=== PATIENT | female | born 1965 | race Caucasian/White ===

== ENCOUNTER → 2021-04-24 11:06 | Outpatient (CLI) | payer MEDICAID, SELFPAY ==
--- NOTE | 2021-04-24 | CA_ITS ---
APPROVED REPORT Exam: Pharmacologic Technologist: Meg Griggs, Ht: 6 ft 0 in Wt: 226 lbs BSA: 2.24 m2 HR: 98 bpm BP: 134/66 mmHg Rhythm: NSR Medical History Medical History: HTN, Hyperlipidemia, Diabetes, Smoking Medications: Omeprazole,,,,, Aspirin,,,,, Metoprolol,,,,, Metformin,,,,, Gabapentin,,,,, CHOLECALCIFEROL,,,,, Potassium,,,,, Sitagliptin,,,,, CetIRIizine,,,,, Lisinopri/HCTZ,,,,, RoSUVASatin,,,,, Furosemide,,,,, Allergies: CODEINE,LIDOCAINE,SULFA Cardiac Risk Factors: HTN, Hyperlipidemia, Diabetes (insulin), FHX of CAD, Smoking Stress Test Details Test: LEXISCAN HR Resting HR: 95 bpm Max Heart Rate (APMHR): 165.492437 bpm Max HR Achieved: 110 bpm Target HR (85% APMHR): 140.685219 bpm % of APMHR: 66.67 Recovery HR: 102 bpm BP Resting BP: 134/66 mmHg Max BP: 162/79 mmHg Recovery BP: 145.0/75.0 mmHg ECG Resting ECG: NSR Clinical Reason for Termination: Completed Protocol Exercise duration: 04:01 min Highest Stage Achieved: Exercise capacity: 1.0 METs Stress ECG Conclusion NO SYMPTOMS, NO ARRHYTHMIAS/ECTOPY, <1.[address] SEGMENT CHANGES, NON DIAGNOSTIC Test Summary REST 03:55 . . 95 . 134/ 66 . . Stage 1 01:00 . . 108 . . . . Stage 2 01:00 . . 105 . 162/ 79 . . Stage 3 01:00 . . 103 . 146/ 83 . . Stage 4 01:00 . . 103 . 138/ 77 . . Stage 4 01:01 . . 103 . 138/ 77 . Stop exercise at 04:01 RECOVERY 01:00 . . 102 . . . . RECOVERY 02:00 . . 103 . 145/ 75 . . RECOVERY 02:01 . . 103 . 145/ 75 . . Electronically signed by : Jeremiah Saldaña MD 04/26/2021 18:46:39
--- NOTE | 2021-04-24 11:06 | NM_ITS ---
APPROVED REPORT Exam: Nuclear Stress Test Indication: angina..short of breath..palpitations..syncope..fatigue Patient Location: Outpatient Stress Tech: Meg Griggs ID Tech:Rima FordeAZAM RT(R)(N) Ht: 6 ft 0 in Wt: 220 lbs Bra Size: c HR: 98 bpm BP: 134/66 mmHg BSA: 2.22 m2 History: angina..short of breath..palpitations..syncope..fatigue Procedure: Patient received a 0.4 mg of intravenous Lexiscan, resting heart rate 98 bpm, resting blood pressure 134/66 mmHg, with Lexiscan maximum heart rate achived was 106 bpm which is Less than 85 % of the maximum predicted heart rate and blood pressure was 162/79 mmHg. With Lexiscan, patient denied any complaint of chest pain. Electrocardiogram Resting electrocardiogram shows sinus rhythm, with Lexiscan there is less than 1.[address] segment depression noted from the baseline EKG. The EKG portion of the Lexiscan is nondiagnostic. Cardiac Stress and Resting SPECT Images: Cardiac Stress and Resting SPECT images were obtained using technetium 99m Myoview 32.8 mCi stress and 10.63 mCi at rest. Gated SPECT for analysis of segmental wall motion and calculation of the ejection fraction also done, prone images were also obtained. Cardiac stress and resting SPECT images show uniform myocardial activity without segmental perfusion abnormality, computer derived ejection fraction is 56% with no regional wall motion abnormality, right ventricle is normal size and contractility. Conclusion: 1. The EKG portion of the Lexiscan is nondiagnostic. 2. No scintigraphic evidence of reversible ischemia seen, computer derived ejection fraction 56% with no regional wall motion abnormality, right ventricle is normal size and contractility. 3. Normal Lexiscan Myoview study. Electronically signed by : Jeremiah Saldaña MD 04/26/2021 18:54:42
== END ==
PROVIDERS: PCP Nurse Practitioner Family; Visit Provider Urology
DX: I20.8 Other forms of angina pectoris (principal)
CPT/HCPCS: 78452; 93017; A9502; J2785

== ENCOUNTER → 2021-05-15 14:11 | Outpatient (CLI) | payer MEDICAID, SELFPAY ==
--- NOTE | 2021-05-15 14:11 | CT_ITS ---
PROCEDURE: CT CHEST WO CON CLINICAL INDICATION: dyspnea, tobacco use Chest pain left-sided, cough, smoker. COMPARISON: No exams were available for comparison TECHNIQUE: Axial images obtained with sagittal and coronal reformats. All CT scans at the facility use one or more dose reduction, viz: automated exposure control, ma/kV adjustment per patient size (including targeted exams where dose is matched to indication, i.e. head), or iterative reconstruction technique. FINDINGS: Airways are patent. There are no pulmonary nodules. No pleural fluid. There is no mediastinal lymphadenopathy. There is severe coronary calcific atherosclerosis. There is hypodensity along the ligamentum teres, likely representing fatty infiltration. There is severe calcific atherosclerosis of the splenic artery. Remainder of the visualized abdominal contents appear unremarkable. Degenerative changes bilateral sternoclavicular joints. IMPRESSION: 1. No pulmonary nodules. 2. Severe coronary atherosclerosis. Referral to cardiology is recommended. Dictated by: Shaista Stein MD 05/15/2021 14:41 Shaista Stein MD in [place] 05/15/2021 14:41
== END ==
PROVIDERS: PCP Nurse Practitioner Family; Visit Provider Physician Assistant
DX: R06.00 Dyspnea, unspecified (principal); I25.10 Atherosclerotic heart disease of native coronary artery without angina pectoris; E11.9 Type 2 diabetes mellitus without complications; F17.200 Nicotine dependence, unspecified, uncomplicated; Z79.4 Long term (current) use of insulin
CPT/HCPCS: 71250

== ENCOUNTER → 2022-03-29 09:06 | Outpatient (CLI) | payer MEDICAID, SELFPAY ==
--- NOTE | 2022-03-29 09:07 | CA_ITS ---
APPROVED REPORT EXAM: Comprehensive 2D, Doppler, and color-flow Echocardiogram Manager Test: Deborah Mario CRT Ht: 6 ft 0 in Wt: 236lbs BSA: 2.29 BP: 118/69 mmHg Indications: Shortness of Breath, Diabetes, CAD, Hypertension/HDD, stent, PHTN 2D Dimensions LA Volume 23.90 mL LA Volume Index 10.40 mL/m2 (M/F) 16-34 M-Mode Dimensions RVDd 2.81 cm (0.9-2.6) LA Diam 3.78 cm (1.9-4.0) LVDd 4.91 cm (3.5-5.7) Ao Diam 4.28 cm (2.0-3.7) LVDs 3.56 cm (3.5-5.7) IVSd 1.56 cm (0.6-1.1) PWd 0.60 cm (0.6-1.1) EF (Teich) 53.30% FS 27.50% EDV (Teich) 113.40 mL TAPSE 2.59 (<1.7) ESV (Teich) 53.00 mL LV Diastology E Decel Time 103.00 (160-240 msec) E/A Ratio 0.78 MED E' 9.60 (< 7 cm/sec) MED A' 11.80 cm/s E'/MED E' Ratio 6.83 (>14) LAT E' 8.00 (<10 cm/sec) LAT A' 10.70 cm/s E/LAT E' Ratio 8.20 (>14) Aortic Valve AO Peak GR. 6.40 mmHg Mitral Valve MV A Velocity 84.00 (40-130 cm/s) E/A Ratio 0.78 MV Decel. Time 103.00 (160-240 ms) Pulmonary Valve PV Peak Velocity 130.00 (50-150 cm/s) Tricuspid Valve TR P. Velocity 112.00 cm/s RAP Estimate 10.00 mmHg RVSP 15.10 mmHg Left Ventricle Left atrium is mildly enlarged, left ventricle is normal size, mild concentric left ventricular hypertrophy, estimated ejection fraction 55% with no regional wall motion abnormality, grade 1 diastolic dysfunction seen without tissue Doppler evidence of raise left atrial pressure. Right Ventricle Right atrium and right ventricle are mildly enlarged with normal contractility. Aortic Valve Aortic valve is minimally thickened and fibrosed there is no aortic stenosis or aortic insufficiency. Mitral Valve Mitral valve is grossly normal, there is trace mitral regurgitation. Tricuspid Valve Tricuspid valve grossly normal, there is trace tricuspid regurgitation, tricuspid regurgitation jet velocity is inadequate for calculation of the right ventricular systolic pressure. Pulmonic Valve Pulmonic valve is poorly visualized. Great Vessels Aortic root is normal size. Inferior vena cava is poorly visualized. Pericardium No significant pericardial effusion noted. Conclusion 1. Technically difficult study because of the patient factors and poor acoustic windows. Mild biatrial enlargement, normal left ventricular size, mild concentric left ventricular hypertrophy, estimated ejection fraction 55% with no regional wall motion abnormality, grade 1 diastolic dysfunction seen without tissue Doppler evidence of raise left atrial pressure. 2. Trace mitral and tricuspid regurgitation. 3. No significant pericardial effusion. 4. Inferior vena cava is poorly visualized. Electronically signed by : Jeremiah Saldaña MD 03/29/2022 20:49:03
== END ==
PROVIDERS: PCP Nurse Practitioner Family; Visit Provider Nurse Practitioner Family
DX: R06.00 Dyspnea, unspecified (principal); R06.02 Shortness of breath; R06.01 Orthopnea; I25.10 Atherosclerotic heart disease of native coronary artery without angina pectoris; I11.9 Hypertensive heart disease without heart failure; E11.9 Type 2 diabetes mellitus without complications; E78.49 Other hyperlipidemia; F17.200 Nicotine dependence, unspecified, uncomplicated; Z79.4 Long term (current) use of insulin
CPT/HCPCS: 93306

== ENCOUNTER → 2023-02-24 13:30 | Outpatient (CLI) | payer MEDICAID, SELFPAY ==
[2023-02-24 14:05] LABS: Basophils # 0.1 K/mm3 (0-0.2); Basophils % 0.8 % (0.1-2.0); Eosinophils # 0.2 K/mm3 (0.0-0.4); Hematocrit 41.3 % (37.0-47.0); Hemoglobin 13.8 g/dL (12.2-16.2); Mean Corpuscular HGB Conc 33.5 g/dL (31.8-35.4); Mean Corpuscular Hemoglobin 30.8 pg (27.0-31.2); Mean Platelet Volume 8.5 fl (7.4-10.4); Monocytes # 0.7 K/mm3 (0.1-1.0); Monocytes % 6.2 % (1.7-9.3); Neutrophils # 7.4 K/mm3 (1.8-7.8); Platelet Count 171 K/mm3 (142-424); Red Blood Count 4.49 M/mm3 (4.20-5.40); Red Cell Distribution Width 12.7 % (11.5-17.5); White Blood Count 11.4 K/mm3 (4.8-10.8)
[2023-02-24 14:16] LABS: Chloride 89 mmol/L (98-107)
[2023-02-24 14:17] LABS: Potassium 4.3 mmoL/L (3.5-5.1); Sodium 129 mmol/L (136-145)
[2023-02-24 14:19] LABS: Alanine Aminotransferase 27 U/L (12-78); Anion Gap 15.3 mEq/L (5-15); Aspartate Amino Transferase 40 U/L (14-36); Bilirubin,Unconjugated 0.5 mg/dL (0.0-1.1); Blood Urea Nitrogen 9 mg/dl (7-17); Carbon Dioxide 29 mmol/L (22.0-30.0); Cholesterol 143 mg/dl (140-200); Estimated Glomerular Filt Rate 103 ml/min (>60); GFR (African American) 125 ML/MIN (>60); Triglycerides 191 mg/dl (30-150); VLDL Cholesterol 38 mg/dL (0-40)
[2023-02-24 14:20] LABS: Albumin Level 4.1 g/dl (3.5-5.0); Alkaline Phosphatase 92 U/L (38-126); Bilirubin,Direct 0.3 mg/dl (0.0-0.4); Bilirubin,Indirect 0.5 mg/dL (0.0-0.9); Bilirubin,Total 0.8 mg/dl (0.2-1.3); Calcium 9.3 mg/dl (8.4-10.2); Chol/HDL Ratio 2.8 (1-3.5); Glucose 214 mg/dl (74-100); HDL Cholesterol 52 mg/dl (40-60); Magnesium 1.1 mg/dl (1.6-2.3); Total Protein,Serum 6.4 g/dl (6.3-8.2)
[2023-02-24 14:31] LABS: Direct LDL Cholesterol 68.62 mg/dL (100-129)
[2023-02-24 14:37] LABS: Free T4 (Free Thyroxine) 0.99 ng/dl (0.78-2.19)
[2023-02-24 14:53] LABS: Thyroid Stimulating Hormone 3.76 uIU/mL (0.465-4.68)
== END ==
PROVIDERS: PCP Nurse Practitioner Family; Visit Provider Internal Medicine
DX: R06.00 Dyspnea, unspecified (principal); R07.9 Chest pain, unspecified; I25.10 Atherosclerotic heart disease of native coronary artery without angina pectoris; I11.9 Hypertensive heart disease without heart failure; E78.5 Hyperlipidemia, unspecified; E11.9 Type 2 diabetes mellitus without complications; I63.9 Cerebral infarction, unspecified; F17.200 Nicotine dependence, unspecified, uncomplicated; Z79.4 Long term (current) use of insulin
CPT/HCPCS: 36415; 80048; 80061; 80076; 83735; 84439; 84443; 85025

== ENCOUNTER → 2023-03-03 12:09 | Outpatient (CLI) | payer MEDICAID, SELFPAY ==
--- NOTE | 2023-03-03 12:09 | NM_ITS ---
APPROVED REPORT Exam: Nuclear Stress Test Indication: chest pain..soa..palpitations..fatigue Patient Location: Outpatient Stress Tech: Mary Grier PA Tech:Rima FordeAZAM RT(R)(N) Ht: 6 ft 0 in Wt: 248 lbs Bra Size: 40c HR: 93 bpm BP: 138/72 mmHg BSA: 2.33 m2 Rhythm: NSR TID: 1.13 History: chest pain..soa..palpitations..fatigue Procedure: Patient received 0.4 mg of intravenous Lexiscan, resting heart rate 93 bpm, resting blood pressure 138/72 mmHg, with Lexiscan maximum heart rate achieved was 111 bpm which is 85 % of the maximum predicted heart rate and blood pressure was 188/79 mmHg. With Lexiscan, patient denied any complaint of chest pain. Cardiac Stress and Resting SPECT Images: Cardiac Stress and Resting SPECT images were obtained using technetium 99m Myoview 32.3 mCi stress and 10.53 mCi at rest. Resting and stress imaging in both supine and prone positions demonstrate no evidence of fixed or reversible perfusion defects. Gated imaging demonstrates normal global and regional LV systolic function. LVEF is calculated at 68%. Conclusion: No evidence of fixed or reversible perfusion defects. Gated imaging demonstrates normal global and regional LV systolic function. LVEF is calculated at 68%. Electronically signed by : Suzanna Camacho, 03/06/2023 19:25:28
--- NOTE | 2023-03-03 13:52 | CA_ITS ---
APPROVED REPORT Exam: Pharmacologic Technologist: Mary Santoro, Ht: 6 ft 0 in Wt: 252 lbs BSA: 2.35 m2 HR: 91 bpm BP: 138/72 mmHg Rhythm: NSR Medical History Medications: Lisinopril,,,,, Omeprazole,,,,, Potassium Chloride,,,,, Aspirin,,,,, Metformin,,,,, Gabapentin,,,,, Metoprolol Tartrate,,,,, Flonase,,,,, Albuterol,,,,, Vit D3,,,,, Januvia,,,,, Metolazone,,,,, Stress Test Details Test: LEXISCAN Reason for pharmacologic stress test: . HR Resting HR: 93 bpm Max Heart Rate (APMHR): 163 bpm Max HR Achieved: 111 bpm Target HR (85% APMHR): 139 bpm % of APMHR: 68 Recovery HR: 97 bpm BP Resting BP: 138/72 mmHg Max BP: 188/79 mmHg Recovery BP: 153.0/88.0 mmHg ECG Resting ECG: NSR, low voltage QRS Stress ECG: No significant ST change Arrhythmia: Occasional PVCs Clinical Exercise duration: 04:00 min Highest Stage Achieved: Stress ECG Conclusion Symptoms: Nausea, ad vomiting. No CP. Arrhythmias/Ectopy: Occasional PVCs. ST-T Changes: No significant ST changess. Conclusion: Unremarkable Lexiscan stress. Myoview images reported sepatately Test Summary REST . . . . . . . Resting REST 05:12 . . 93 . 138/ 72 . . Stage 1 01:00 . . 102 . . . . Stage 2 01:00 . . 108 . . . . Stage 3 01:00 . . 107 . . . . Stage 4 01:00 . . 109 . 188/ 79 . Stop exercise at 04:00 RECOVERY 01:00 . . 107 . . . . RECOVERY 02:00 . . 103 . 171/ 93 . . RECOVERY 03:00 . . 98 . 167/ 80 . . RECOVERY 04:00 . . 100 . 167/ 80 . . RECOVERY 04:41 . . 100 . 163/ 88 . . Electronically signed by : Suzanna Camacho, 03/06/2023 19:23:38
== END ==
PROVIDERS: PCP Nurse Practitioner Family; Visit Provider Internal Medicine
DX: R06.00 Dyspnea, unspecified (principal); R07.9 Chest pain, unspecified; I25.10 Atherosclerotic heart disease of native coronary artery without angina pectoris; I11.9 Hypertensive heart disease without heart failure; E78.5 Hyperlipidemia, unspecified; E11.9 Type 2 diabetes mellitus without complications; F17.200 Nicotine dependence, unspecified, uncomplicated; Z79.4 Long term (current) use of insulin
CPT/HCPCS: 78452; 93017; A9502; J0280; J2785

== ENCOUNTER → 2023-03-23 13:24 | Outpatient (CLI) | payer MEDICAID, SELFPAY ==
--- NOTE | 2023-03-23 13:26 | CA_ITS ---
APPROVED REPORT EXAM: Comprehensive 2D, Doppler, and color-flow Echocardiogram Piece Dye Worker: Queenie Kan RVT Ht: 6 ft 0 in Wt: 252lbs BSA: 2.35 BP: 172/87 mmHg Indications: DONALDSON,EDEMA,CP TDS-LIMITED WINDOWS R/T BODY HABITUS 2D Dimensions LVOT 2.04 cm (M/F) 1.5-2.5 LA Volume 30.40 mL LA Volume Index 12.94 mL/m2 (M/F) 16-34 M-Mode Dimensions RVDd 2.38 cm (0.9-2.6) LA Diam 4.27 cm (1.9-4.0) LVDd 4.16 cm (3.5-5.7) Ao Diam 3.65 cm (2.0-3.7) LVDs 3.06 cm (3.5-5.7) IVSd 1.02 cm (0.6-1.1) PWd 0.51 cm (0.6-1.1) EF (Teich) 52.20% FS 26.40% EDV (Teich) 76.80 mL TAPSE 1.92 (<1.7) ESV (Teich) 36.70 mL LV Diastology E Decel Time 257.00 (160-240 msec) E/A Ratio 0.8 MED E' 9.00 (< 7 cm/sec) E'/MED E' Ratio 7.14 (>14) LAT E' 10.00 (<10 cm/sec) E/LAT E' Ratio 6.43 (>14) Aortic Valve AO Peak GR. 7.00 mmHg Mitral Valve MV E Max Kristian. 64.00 (40-130 cm/s) MV A Velocity 77.00 (40-130 cm/s) E/A Ratio 0.83 MV Decel. Time 257.00 (160-240 ms) MV PHT 75.00 ms Pulmonary Valve PV Peak Velocity 91.00 (50-150 cm/s) Left Ventricle The left ventricle is normal size. The left ventricular systolic function is normal. The left ventricular ejection fraction is within the normal range. There is increased LV wall thickness. There is normal LV segmental wall motion. The left ventricular diastolic function is normal. LVEF is 55%. Right Ventricle The right ventricle is normal size. The right ventricular systolic function is normal. There is increased RV wall thickness. Atria The left atrium size is normal. The right atrium size is normal. There is no Doppler evidence of interatrial shunt. Aortic Valve The aortic valve opens well. There is no aortic valvular stenosis. No aortic regurgitation is present. Mitral Valve The mitral valve is normal in structure. No evidence of mitral valve stenosis. Trace mitral regurgitation. Tricuspid Valve The tricuspid valve leaflets are thin and pliable. Trace tricuspid regurgitation. RVSP is normal. Pulmonic Valve The pulmonary valve is grossly normal in structure. Trace pulmonic regurgitation. Great Vessels The aortic root is normal in size. The ascending aorta is normal in size. IVC is normal in size and collapses >50% with inspiration. Pericardium Trivial pericardial effusion is noted anteriorly towards the distal RV free wall. Other Information Study Quality: Technically Difficult Conclusion This was a technically difficult study due to poor accoustic windows. Normal biventricular systolic function. No significant valvular disease. Trivial anterior pericardial effusion. Electronically signed by : Suzanna Camacho, 03/29/2023 00:00:33
== END ==
PROVIDERS: PCP Nurse Practitioner Family; Visit Provider Internal Medicine
DX: R06.00 Dyspnea, unspecified (principal); R07.9 Chest pain, unspecified; I25.10 Atherosclerotic heart disease of native coronary artery without angina pectoris; I11.9 Hypertensive heart disease without heart failure; E11.9 Type 2 diabetes mellitus without complications; E78.5 Hyperlipidemia, unspecified; F17.200 Nicotine dependence, unspecified, uncomplicated; Z79.4 Long term (current) use of insulin
CPT/HCPCS: 93306

== ENCOUNTER → 2023-03-31 14:28 | Outpatient (CLI) | payer MEDICAID, SELFPAY ==
[2023-03-31 16:10] LABS: Anion Gap 16.4 mEq/L (5-15); Blood Urea Nitrogen 13 mg/dl (7-17); Calcium 8.7 mg/dl (8.4-10.2); Carbon Dioxide 32 mmol/L (22.0-30.0); Chloride 79 mmol/L (98-107); Estimated Glomerular Filt Rate 86 ml/min (>60); GFR (African American) 104 ML/MIN (>60); Glucose 219 mg/dl (74-100); Potassium 4.4 mmoL/L (3.5-5.1); Sodium 123 mmol/L (136-145)
[2023-03-31 16:19] LABS: NT Pro Brain Natriuretic Pep. 461 pg/mL (0-125)
== END ==
PROVIDERS: PCP Nurse Practitioner Family; Visit Provider Internal Medicine
DX: E11.9 Type 2 diabetes mellitus without complications (principal); E78.5 Hyperlipidemia, unspecified; I11.9 Hypertensive heart disease without heart failure; I25.10 Atherosclerotic heart disease of native coronary artery without angina pectoris; R06.00 Dyspnea, unspecified; R60.9 Edema, unspecified; F17.200 Nicotine dependence, unspecified, uncomplicated
CPT/HCPCS: 36415; 80048; 83735; 83880

== ENCOUNTER 2024-07-19 10:16 | Outpatient (CLI) | payer MEDICAID, SELFPAY ==
[2024-07-19 10:45] LABS: Basophils # 0.1 K/mm3 (0-0.2); Basophils % 0.6 % (0.1-2.0); Eosinophils # 0.3 K/mm3 (0.0-0.4); Eosinophils % 2.3 % (0.1-12.0); Hematocrit 38.7 % (37.0-47.0); Hemoglobin 12.9 g/dL (12.2-16.2); Lymphocytes # 3.1 K/mm3 (0.7-4.5); Lymphocytes % 25.8 % (10-50); Mean Corpuscular HGB Conc 33.3 g/dL (31.8-35.4); Mean Corpuscular Hemoglobin 29.1 pg (27.0-31.2); Mean Corpuscular Volume 87.4 fl (81-99); Mean Platelet Volume 10.7 fl (7.4-10.4); Monocytes # 0.7 K/mm3 (0.1-1.0); Monocytes % 6.1 % (1.7-9.3); Neutrophils # 7.7 K/mm3 (1.8-7.8); Neutrophils % 64.9 % (37.0-80.0); Platelet Count 185 K/mm3 (142-424); Red Blood Count 4.43 M/mm3 (4.20-5.40); Red Cell Distribution Width 13.7 % (11.5-17.5); White Blood Count 11.9 K/mm3 (4.8-10.8)
[2024-07-19 11:00] LABS: Alanine Aminotransferase 18 U/L (12-78); Albumin Level 4.1 g/dl (3.5-5.0); Alkaline Phosphatase 84 U/L (38-126); Anion Gap 14.3 mEq/L (5-15); Aspartate Amino Transferase 38 U/L (14-36); Bilirubin,Direct 0.5 mg/dl (0.0-0.4); Bilirubin,Indirect 0.2 mg/dL (0.0-0.9); Bilirubin,Total 0.7 mg/dl (0.2-1.3); Bilirubin,Unconjugated 0.2 mg/dL (0.0-1.1); Blood Urea Nitrogen 28 mg/dl (7-17); Calcium 8.4 mg/dl (8.4-10.2); Carbon Dioxide 28 mmol/L (22.0-30.0); Chloride 94 mmol/L (98-107); Chol/HDL Ratio 3.1 (1-3.5); Cholesterol 116 mg/dl (140-200); Estimated Glomerular Filt Rate 33 ml/min (>60); GFR (African American) 40 ML/MIN (>60); Glucose 143 mg/dl (74-100); HDL Cholesterol 38 mg/dl (40-60); Potassium 4.3 mmoL/L (3.5-5.1); Sodium 132 mmol/L (136-145); Total Protein,Serum 6.3 g/dl (6.3-8.2); Triglycerides 282 mg/dl (30-150); VLDL Cholesterol 56 mg/dL (0-40)
[2024-07-19 11:14] LABS: Free T4 (Free Thyroxine) 0.96 ng/dl (0.78-2.19)
[2024-07-19 11:41] LABS: Direct LDL Cholesterol 51.78 mg/dL (100-129)
== END 2024-07-19 23:59 | disposition home or self-care (01) ==
PROVIDERS: PCP Family Medicine; Visit Provider Nurse Practitioner
DX: F10.20 Alcohol dependence, uncomplicated (principal); E83.42 Hypomagnesemia; E87.1 Hypo-osmolality and hyponatremia; I25.10 Atherosclerotic heart disease of native coronary artery without angina pectoris; E11.9 Type 2 diabetes mellitus without complications; I11.9 Hypertensive heart disease without heart failure; F17.200 Nicotine dependence, unspecified, uncomplicated; Z79.84 Long term (current) use of oral hypoglycemic drugs; Z79.85 Long-term (current) use of injectable non-insulin antidiabetic drugs; E78.5 Hyperlipidemia, unspecified
CPT/HCPCS: 36415; 80048; 80061; 80076; 83735; 84439; 84443; 85025